=== PATIENT | male | born 1990 | race Caucasian/White ===

== ENCOUNTER 2021-06-07 14:55 | Emergency (ER) | payer BC ==
[2021-06-07] MEDS ORDERED: MEDROL4 MG PO (19:08)
== END 2021-06-07 19:53 | disposition home or self-care (01) ==
LOC: ER1 14:55
DX: M51.36 Other intervertebral disc degeneration, lumbar region (principal)
CPT/HCPCS: 72131; 96372; 99283; J1885; J2360; J2930

== ENCOUNTER → 2021-06-16 | Outpatient (CLI) | payer BC ==
[~2021-06-16] MED LIST: MEDROL4 MG PO
== END ==
LOC: KOH-I 08:45
DX: M51.27 Other intervertebral disc displacement, lumbosacral region (principal)
CPT/HCPCS: 72148